=== PATIENT | male | born 1940 | race Caucasian/White ===

== ENCOUNTER 2020-04-15 10:07 | Outpatient (REF) | payer MEDICARE, SELFPAY ==
[2020-04-15 19:50] LABS: Anion Gap 11.9 mmol/L (3-11); BUN 32 mg/dL (7-18); CO2 27.1 mmol/L (21.0-32.0); CREATININE 1.13 mg/dL (0.70-1.30); Calcium 9.6 mg/dL (8.5-10.1); Calculated LDL 124 mg/dL (<100); Chloride 101 mmol/L (98-107); Cholesterol 219 mg/dL (<200); Glucose 94 mg/dL (74-106); HDL Cholesterol 54 mg/dL (40-60); Potassium 4.3 mmol/L (3.5-5.1); Sodium 140 mmol/L (136-145); Triglyceride 208 mg/dL (<150)
== END 2020-04-15 10:27 ==
LOC: NCHCN 10:07
PROVIDERS: Visit Provider Physician Assistant
DX: I10 Essential (primary) hypertension (principal); E78.5 Hyperlipidemia, unspecified
CPT/HCPCS: 80048; 80061

== ENCOUNTER 2021-04-23 18:51 | Outpatient (REF) | payer MEDICARE, BC, SELFPAY ==
[2021-04-23 19:19] LABS: HCT 41.9 % (40.0-50.0); MCH 28.1 pg (27.0-33.0); MCV 90.7 fL (80-95); MPV 12.9 fL (8.0-11.0); Platelet Count 226 10^3/uL (130-400); RBC 4.62 10^6/uL (4.36-5.78); RDW 12.9 % (11.8-14.1); RDW-SD 42.5 fL; WBC 5.51 10^3/uL (4.4-10.8)
[2021-04-23 19:42] LABS: ALT 57 U/L (16-63); AST 24 U/L (15-37); Albumin 3.9 g/dL (3.4-5.0); Alkaline Phosphatase 57 U/L (46-116); Anion Gap 10.6 mmol/L (3-11); BUN 45 mg/dL (7-18); Bilirubin, Total 0.4 mg/dL (0.2-1.0); CO2 27.4 mmol/L (21.0-32.0); CREATININE 1.4 mg/dL (0.70-1.30); Calcium 8.8 mg/dL (8.5-10.1); Calculated LDL 147 mg/dL (<100); Chloride 106 mmol/L (98-107); Cholesterol 217 mg/dL (<200); Estimated GFR 49.01 (mL/min/1.73m2); Glucose 94 mg/dL (74-106); HDL Cholesterol 48 mg/dL (40-60); Potassium 4.1 mmol/L (3.5-5.1); Sodium 144 mmol/L (136-145); Total Protein 6.8 g/dL (6.4-8.2); Triglyceride 114 mg/dL (<150)
== END 2021-04-23 18:52 | disposition home or self-care (01) ==
LOC: NCHCN 18:51
PROVIDERS: Visit Provider Physician Assistant
DX: I10 Essential (primary) hypertension (principal); K21.9 Gastro-esophageal reflux disease without esophagitis
CPT/HCPCS: 80053; 80061; 85027

== ENCOUNTER 2021-06-07 01:02 | Outpatient (CLI) | payer MEDICARE, BC, SELFPAY ==
--- NOTE | 2021-06-07 09:00 | ETT_ITS ---
APPROVED REPORT Exam: Exercise Treadmill Patient Location: Out-Patient Room/Bed: Stress Nurse: Jahaira Camp RN Ordering Provider:SHANI KAUFMAN, Contact Number: [phone] BMI: 28.69 Baseline Rhythm: Sinus Rhythm Indications: Exertional dyspnea Medical History Medical History: Hypertension, hyperlipidemia, dyspnea, dysphagia, gerd Cardiac Medications: Losartan, atorvastatin, chlorthalidone, omeprazole, silenafil Allergies: NKA Cardiac Risk Factors: Hypertension, hyperlipidemia Previous Cardiac Procedures: None Pretest Chest Pain Characteristics: None Exercise History: Physically active Physical Disabilities: None Lung Sounds: Clear to auscultation Heart Sounds: Regular Stress Test Details Test: Exercise stress testing was performed using a Wero protocol. Rest Stress HR Resting HR Supine: 62 bpm Max Heart Rate (APMHR): 142 bpm Resting HR Standin bpm Target HR (85% APMHR): 120 bpm Max HR Achieved: 140 bpm % of APMHR: 98 Recovery HR: 76 bpm HR response to stress: Normal HR response to stress BP Resting BP Supine: 148/70 mmHg Resting BP Standin/70 mmHg Max BP: 170/68 mmHg Recovery BP: 138/72 mmHg BP response to stress: Normal blood pressure response to stress. ECG Resting ECG: Sinus Rhythm Ectopy: None Stress ECG: Sinus Tachycardia ST Change: Upsloping ST depression Lead(s): II, III, AVF Stage: [address] Deviation: 2 mm Arrhythmia: None Recovery ECG: Sinus Rhythm Recovery ST Change: Downsloping ST depression, Horizontal ST depression Lead(s): II, III, AVF, V4-V6 Recovery ST Deviation: 3 mm Recovery Arrhythmia: Rare PAC Comment: ST depression returned to baseline by minute 16 of recovery Clinical Reason for Termination: Fatigue, Dyspnea Stress Symptoms: General Fatigue, Dyspnea Exercise duration: 3 min57 sec Highest Stage Reached: Stage 2: 2.5 mph at 12% grade. Exercise capacity: 5.75 METs Almaguer Treadmill Score: 2.3 Rate Pressure Product: 13934 Stress ECG Conclusion 1. Resting electrocardiogram showed a nonspecific interventricular conduction delay 2. Patient exercised on the Wero protocol and completed a workload of 5.75 METS, limited by fatigue 3. Normal heart rate and blood pressure response to exercise. Patient achieved 98% of predicted hear t rate for age 4. At peak exercise there was J-point depression and upsloping ST segments which did not meet criter ia for ischemia 5. In recovery there was downsloping ST depression noted in the inferior and anterolateral leads 1.5 to 2 mm, with T wave inversion. ST-T abnormality is resolved by minute 16 of recovery 6. Occasional atrial premature beats were noted Almaguer Treadmill Score is 2.3 which is Moderate risk. Stress Test Summary STAGE Time (mins) Speed (mph) Grade (%) HR BP SYMPTOMS METS Supine 62 148/70 Standing 67 152/70 SpO2 97% 1 3 1.7 10 130 152/72 SpO2 95% 4.6 2 6 2.5 12 138 Moderate SOB, SpO2 95% 7 1 min recovery 126 148/68 SOB resolving, SpO2 95% 3 min recovery 92 170/68 SOB resolving, SpO2 98% 6 min recovery 83 162/68 SOB resolved, SpO2 98% 9 min recovery 80 154/70 SpO2 97% 12 min recovery 78 138/72 SpO2 98% 15 min recovery 75 SpO2 98% 16 min recovery 76 SpO2 97% Pt reported moderate SOB during second stage of execise prior to termination of test. Resolved by min puneet 6 of recovery. Pt denied any other signs/symptoms during testing and recovery.
== END 2021-06-07 01:22 ==
PROVIDERS: Visit Provider Physician Assistant
DX: R06.09 Other forms of dyspnea (principal); I10 Essential (primary) hypertension; E78.5 Hyperlipidemia, unspecified; I49.1 Atrial premature depolarization; R94.39 Abnormal result of other cardiovascular function study
CPT/HCPCS: 93016; 93018; 93017

== ENCOUNTER 2022-10-18 08:03 | Outpatient (CLI) | payer MEDICARE, BC, SELFPAY ==
--- NOTE | 2022-10-18 08:00 | RT.EKG_ITS ---
APPROVED REPORT Exam: Resting ECG Reason for Exam: cad Patient Location: O HR:71 bpm ECG Measurements Heart Rate 71 AXIS GA 172 P 91 QRSd 119 QRS -16 QT 420 T 53 QTc 457 Conclusion Sinus rhythm...normal P axis, V-rate 50- 99 Nonspecific intraventricular conduction delay...QRSd >115mS, not LBBB/RBBB Baseline wander in lead(s) II,III,aVL,aVF,V4,V6
== END 2022-10-18 08:04 | disposition home or self-care (01) ==
LOC: DI.CARD 08:04
PROVIDERS: Visit Provider Internal Medicine Cardiovascular Disease
DX: I25.10 Atherosclerotic heart disease of native coronary artery without angina pectoris (principal); I42.9 Cardiomyopathy, unspecified; I50.9 Heart failure, unspecified
CPT/HCPCS: 93010

== ENCOUNTER → 2022-10-18 12:42 | Outpatient (BNVA) | payer MEDICARE, BC, SELFPAY | PROVIDERS: Visit Provider Internal Medicine Cardiovascular Disease | DX: I25.810 Atherosclerosis of coronary artery bypass graft(s) without angina pectoris (principal); I10 Essential (primary) hypertension; E78.5 Hyperlipidemia, unspecified | CPT/HCPCS: 93005; 99202 ==